=== PATIENT | male | born 1960 | race American Indian/Alaskan Native ===

== ENCOUNTER 2019-07-02 15:04 | Emergency (ER) | payer MEDICAID ==
--- NOTE | 2019-07-02 15:16 | Event Note ---
ED Screening Note Date of service: 07/02/19 Time: 15:14 ED Screening Note: 59 y/o male comes in for bilateral leg cramps. Has DM. This initial assessment/diagnostic orders/clinical plan/treatment(s) is/are subject to change based on patients health status, clinical progression and re-assessment by fellow clinical providers in the ED. Further treatment and workup at subsequent clinical providers discretion. Patient/guardian urged not to elope from the ED as their condition may be serious if not clinically assessed and managed. Initial orders include:
[2019-07-02 15:42] LABS: Basophils % (Auto) 0.4 % (0.0-1.8); Eosinophils # (Auto) 0.1 K/mm3 (0.0-0.4); Eosinophils % (Auto) 1.6 % (0.0-4.3); Lymphocytes # (Auto) 1.5 K/mm3 (1.2-5.4); Lymphocytes % (Auto) 33.7 % (13.4-35.0); Mean Corpuscular HGB Conc 34 % (32-34); Mean Corpuscular Volume 95 fl (84-94); Monocytes # (Auto) 0.4 K/mm3 (0.0-0.8); Monocytes % (Auto) 9.7 % (0.0-7.3); Platelet Count 140 K/mm3 (140-440); Red Blood Count 4.64 M/mm3 (3.65-5.03); Red Cell Distribution Width 12.8 % (13.2-15.2)
[2019-07-02 16:04] LABS: Alanine Aminotransferase 57 units/L (7-56); BUN/Creatinine Ratio 12; Blood Urea Nitrogen 12 mg/dL (9-20); Calcium 9.2 mg/dL (8.4-10.2); Hemolysis Index 3
[2019-07-02] MEDS ORDERED: TORADOL IV ONE (16:37)
[2019-07-02] MEDS ORDERED: PERCOCET 5/325 PO ONE (16:37)
[2019-07-02] MEDS ORDERED: NACL 0.9% 1000 ML 1,000 ML IV ONE ×2 (16:37→17:10)
[2019-07-02] MEDS ORDERED: HumuLIN R IV ONE ×2 (16:38→17:39)
--- NOTE | 2019-07-02 17:47 | Emergency Department Report ---
ED Extremity Problem HPI - General Chief complaint: Extremity Injury, Lower Stated complaint: BI LEG PAIN Time Seen by Provider: 07/02/19 15:14 Source: patient Mode of arrival: Ambulatory Limitations: No Limitations - History of Present Illness Initial comments: Patient is a 59-year-old male who presents to the emergency room with complaint of bilateral LE cramping that began 3 weeks ago. He denies any swelling of the legs or calf pain. He denies any recent long car or plane ride, recent surgery, recent immobilization. Patient states he has a past medical history of diabetes and is on insulin 70/30. He states he takes 25 units in the morning and 20 units at night. Pt states when he checked his sugar this morning and was 110. He states that he ate grits, eggs, and drank coffee for breakfast and then for lunch he had a turkey saline lunch and drank sweet tea. He states he sees his primary care doctor every 3 months. - Related Data Allergies Allergy/AdvReac Type Severity Reaction Status Date / Time No Known Allergies Allergy Unverified 07/02/19 15:09 ED Review of Systems ROS: Stated complaint: BI LEG PAIN Other details as noted in HPI Comment: All other systems reviewed and negative ED Past Medical Hx - Past Medical History Hx Diabetes: Yes Additional medical history: PANCREATITIS - Surgical History Additional Surgical History: RT LEG SURGERY - Social History Smoking Status: Former Smoker Substance Use Type: None ED Physical Exam - General Limitations: No Limitations General appearance: alert, in no apparent distress - Head Head exam: Present: atraumatic, normocephalic - Eye Eye exam: Present: normal appearance - ENT ENT exam: Present: mucous membranes moist - Respiratory Respiratory exam: Present: normal lung sounds bilaterally. Absent: respiratory distress, wheezes, rales, rhonchi, stridor, accessory muscle use, decreased breath sounds, prolonged expiratory - Cardiovascular Cardiovascular Exam: Present: regular rate, normal rhythm, normal heart sounds. Absent: systolic murmur, diastolic murmur, rubs, gallop - Extremities Exam Extremities exam: Present: other (no TTP of the BLE, no edema of the BLE, 2+ distal pulses, sensation intact, no calf tenderness) - Neurological Exam Neurological exam: Present: alert, oriented X3 - Psychiatric Psychiatric exam: Present: normal affect, normal mood - Skin Skin exam: Present: warm, dry, intact ED Course Vital Signs 07/02/19 07/02/19 07/02/19 15:14 18:45 19:57 Temperature 98.3 F 97.4 F L Pulse Rate 65 46 L Respiratory 18 16 17 Rate Blood Pressure 126/78 Blood Pressure 162/83 [Right] O2 Sat by Pulse 100 7 L Oximetry 07/02/19 20:52 Temperature Pulse Rate 50 L Respiratory 20 Rate Blood Pressure Blood Pressure [Right] O2 Sat by Pulse 97 Oximetry ED Medical Decision Making - Lab Data Result diagrams: 07/02/19 15:22 07/02/19 15:22 Lab Results 07/02/19 07/02/19 07/02/19 Range/Units 15:22 15:22 17:24 WBC 4.3 L (4.5-11.0) K/mm3 RBC 4.64 (3.65-5.03) M/mm3 Hgb 15.0 (11.8-15.2) gm/dl Hct 44.0 (35.5-45.6) % MCV 95 H (84-94) fl MCH 32 (28-32) pg MCHC 34 (32-34) % RDW 12.8 L (13.2-15.2) % Plt Count 140 (140-440) K/mm3 Lymph % (Auto) 33.7 (13.4-35.0) % [place] % (Auto) 9.7 H (0.0-7.3) % Eos % (Auto) 1.6 (0.0-4.3) % Baso % (Auto) 0.4 (0.0-1.8) % Lymph # 1.5 (1.2-5.4) K/mm3 [place] # 0.4 (0.0-0.8) K/mm3 Eos # 0.1 (0.0-0.4) K/mm3 Baso # 0.0 (0.0-0.1) K/mm3 Seg Neutrophils % 54.6 (40.0-70.0) % Seg Neutrophils # 2.4 (1.8-7.7) K/mm3 Sodium 135 L (137-145) mmol/L Potassium 4.1 (3.6-5.0) mmol/L Chloride 96.5 L (98-107) mmol/L Carbon Dioxide 25 (22-30) mmol/L Anion Gap 18 mmol/L BUN 12 (9-20) mg/dL Creatinine 1.0 (0.8-1.5) mg/dL Estimated GFR > 60 ml/min BUN/Creatinine Ratio 12 % Glucose 534 H* (75-100) mg/dL POC Glucose 399 H (70-105) Calcium 9.2 (8.4-10.2) mg/dL Total Bilirubin 1.10 (0.1-1.2) mg/dL AST 43 H (5-40) units/L ALT 57 H (7-56) units/L Alkaline Phosphatase 52 (35-129) units/L Total Creatine Kinase (55-170) units/L Total Protein 7.7 (6.3-8.2) g/dL Albumin 4.0 (3.9-5) g/dL Albumin/Globulin Ratio 1.1 % Urine Color (Yellow) Urine Turbidity (Clear) Urine pH (5.0-7.0) Ur Specific [place] (1.003-1.030) Urine Protein (Negative) mg/dL Urine Glucose (UA) (Negative) mg/dL Urine Ketones (Negative) mg/dL Urine Blood (Negative) Urine Nitrite (Negative) Urine Bilirubin (Negative) Urine Urobilinogen (<2.0) mg/dL Ur Leukocyte Esterase (Negative) Urine WBC (Auto) (0.0-6.0) /HPF Urine RBC (Auto) (0.0-6.0) /HPF 07/02/19 07/02/19 Range/Units 18:50 19:24 WBC (4.5-11.0) K/mm3 RBC (3.65-5.03) M/mm3 Hgb (11.8-15.2) gm/dl Hct (35.5-45.6) % MCV (84-94) fl MCH (28-32) pg MCHC (32-34) % RDW (13.2-15.2) % Plt Count (140-440) K/mm3 Lymph % (Auto) (13.4-35.0) % [place] % (Auto) (0.0-7.3) % Eos % (Auto) (0.0-4.3) % Baso % (Auto) (0.0-1.8) % Lymph # (1.2-5.4) K/mm3 [place] # (0.0-0.8) K/mm3 Eos # (0.0-0.4) K/mm3 Baso # (0.0-0.1) K/mm3 Seg Neutrophils % (40.0-70.0) % Seg Neutrophils # (1.8-7.7) K/mm3 Sodium (137-145) mmol/L Potassium (3.6-5.0) mmol/L Chloride (98-107) mmol/L Carbon Dioxide (22-30) mmol/L Anion Gap mmol/L BUN (9-20) mg/dL Creatinine (0.8-1.5) mg/dL Estimated GFR ml/min BUN/Creatinine Ratio % Glucose (75-100) mg/dL POC Glucose (70-105) Calcium (8.4-10.2) mg/dL Total Bilirubin (0.1-1.2) mg/dL AST (5-40) units/L ALT (7-56) units/L Alkaline Phosphatase (35-129) units/L Total Creatine Kinase 1101 H (55-170) units/L Total Protein (6.3-8.2) g/dL Albumin (3.9-5) g/dL Albumin/Globulin Ratio % Urine Color Straw (Yellow) Urine Turbidity Clear (Clear) Urine pH 6.0 (5.0-7.0) Ur Specific [place] 1.024 (1.003-1.030) Urine Protein <15 mg/dl (Negative) mg/dL Urine Glucose (UA) >=500 (Negative) mg/dL Urine Ketones Neg (Negative) mg/dL Urine Blood Sm (Negative) Urine Nitrite Neg (Negative) Urine Bilirubin Neg (Negative) Urine Urobilinogen < 2.0 (<2.0) mg/dL Ur Leukocyte Esterase Neg (Negative) Urine WBC (Auto) < 1.0 (0.0-6.0) /HPF Urine RBC (Auto) 1.0 (0.0-6.0) /HPF - Medical Decision Making Patient is a 59-year-old male who presents to the emergency room with complaint of bilateral LE cramping that began 3 weeks ago. He denies any swelling of the legs or calf pain. He denies any recent long car or plane ride, recent surgery, recent immobilization. Patient states he has a past medical history of diabetes and is on insulin 70/30. He states he takes 25 units in the morning and 20 units at night. Pt states when he checked his sugar this morning and was 110. He states that he ate grits, eggs, and drank coffee for breakfast and then for lunch he had a turkey saline lunch and drank sweet tea. He states he sees his primary care doctor every 3 months. vitals are normal. on exam: no TTP of the BLE, no edema of the BLE, 2+ distal pulses, sensation intact, no calf tenderness. labs are significant for blood glucose of 534 and CK of 1101. UA with no ketones or protein. unlikely to be DKA as there are no ketones and anion gap is not signficantly elevated. unlikely to be rhabdomyolysis as there is no protein in the urine or kidney dysfunction present. pt given 2L of NS and 5 units of IV normal insulin. over several hours blood glucose improved to the 212 per nurse. pt states his symptoms resolved. advised pt to please drink lots of water over the next several days. Please take your insulin as your prescribed by your primary care physician. Please avoid high sugar foods and drinks. Follow-up with your primary care doctor in the next 2-3 days. Return to the emergency room for new or worsening symptoms. Critical care attestation.: If time is entered above; I have spent that time in minutes in the direct care of this critically ill patient, excluding procedure time. ED Disposition Clinical Impression: Leg cramping, Hyperglycemia Disposition: DC-01 TO HOME OR SELFCARE Is pt being admited?: No Does the pt Need Aspirin: No Condition: Stable Instructions: Leg Cramps (ED) Additional Instructions: Please drink lots of water over the next several days. Please take your insulin as your prescribed by your primary care physician. Please avoid high sugar foods and drinks. Follow-up with your primary care doctor in the next 2-3 days. Return to the emergency room for new or worsening symptoms. Referrals: CELIA DRISCOLL MD [Primary Care Provider] - 2-3 Days Time of Disposition: 20:38 Print Language: CITIZEN OF [place]
[2019-07-02 19:44] LABS: Bilirubin,Urine NEG (Negative); Blood,Urine SM (Negative); Color,Urine Straw (Yellow); Protein,Urine <15 mg/dL mg/dL (Negative); Urobilinogen,Urine < 2.0 mg/dL (<2.0); WBC,Urine < 1.0 /HPF (0.0-6.0)
[2019-07-02 19:58] VITALS: BP 162/83
== END 2019-07-02 20:53 | disposition home or self-care (01) ==
LOC: ED 15:04
DX: E11.65 Type 2 diabetes mellitus with hyperglycemia (principal); Z98.890 Other specified postprocedural states; Z87.891 Personal history of nicotine dependence; Z79.4 Long term (current) use of insulin
CPT/HCPCS: 36415; 80053; 81001; 82550; 82962; 85025; 96361; 96374; 99283; J7030; J1815; J1885